=== PATIENT | male | born 1940 | race Two or more races ===

== ENCOUNTER → 2017-04-13 | Outpatient (CLI) | payer MEDICARE, MEDICAID ==
[~2017-04-13] MED LIST: ASPI-891 PO; ATOR20TA86 PO; BENA20TA77 PO; METF500T4 PO; METO50TA5 PO; TAMS0.4C32 PO
== END | disposition home or self-care (01) ==
LOC: RADPV 10:16
PROVIDERS: ATTEND Hospitalist
DX: N40.0 Benign prostatic hyperplasia without lower urinary tract symptoms (principal)
CPT/HCPCS: 76770

== ENCOUNTER → 2017-06-06 | Outpatient (CLI) | payer MEDICARE, MEDICAID | END | disposition home or self-care (01) | LOC: RADPV 10:43 | PROVIDERS: ATTEND Internal Medicine Cardiovascular Disease | DX: I08.0 Rheumatic disorders of both mitral and aortic valves (principal) | CPT/HCPCS: 93306 ==

== ENCOUNTER → 2017-10-19 | Outpatient (CLI) | payer MEDICARE, MEDICAID ==
[~2017-10-19] MED LIST changes: +METO50TA18 PO; -METO50TA5 PO
== END | disposition home or self-care (01) ==
LOC: RADPV 10:13
PROVIDERS: ATTEND Internal Medicine Cardiovascular Disease
DX: I08.3 Combined rheumatic disorders of mitral, aortic and tricuspid valves (principal)
CPT/HCPCS: 93306

== ENCOUNTER → 2020-09-17 | Outpatient (CLI) | payer MEDICARE ==
[~2020-09-17] MED LIST changes: +METF-444 PO; -METF500T4 PO
== END | disposition home or self-care (01) ==
LOC: RADPV 11:24
PROVIDERS: ATTEND Internal Medicine Pulmonary Disease
DX: J45.909 Unspecified asthma, uncomplicated (principal)
CPT/HCPCS: 71046; 71046-TC